=== PATIENT | female | born 1995 | race Caucasian/White ===

== ENCOUNTER 2017-09-19 04:06 | Emergency (ER) | payer SELFPAY ==
[~2017-09-19] VITALS: Ht 180.3 cm; Wt 75.0 kg
[~2017-09-19 04:06] MED LIST: MACR100C2 PO
[2017-09-19 04:08] VITALS: BP 137/71; PULSE 73; RESP 18; TEMP 98.6; O2SAT 100
[2017-09-19 04:50] LABS: BILIRUBIN, URINE NEG (NEG); BLOOD, URINE LARGE (NEG); GLUCOSE,URINE NEG (NEG); KETONE, URINE NEG (NEG); MUCUS URINE FEW /lpf (OCC); NITRITE,URINE NEG (NEG); PH, URINE 5.5 (5.0-8.5); RENAL EPITHELIAL CELLS 1 /hpf; URINE LEUKOCYTE ESTERASE LARGE (NEG); WHITE BLOOD CELL CLUMPS MANY
[2017-09-19 04:51] LABS: URINE COLOR LIGHT-RED (YELLW/STRAW)
[2017-09-19] MEDS ORDERED: NITROFURANTOIN MONOHYD MACROCR 100 MG CAP PO ONE (05:00)
[2017-09-19] MEDS ORDERED: NITR100C4 PO (05:01)
--- NOTE | 2017-09-19 05:01 | PD ---
HPI Chief Complaint: Complaint Time Seen by Provider: 04:18 Travel History International Travel<30 days: No Contact w/Intl Traveler<30days: No Traveled to known affect area: No History of Present Illness HPI Patient is a 22-year-old female presenting to the emergency department for evaluation of 4 hours of dysuria. She reports that her urine has specks of blood in it. Patient states she feels as if she has to urinate every 5 minutes. She denies any abdominal pain, back pain, fever, chills, nausea, vomiting. She denies any vaginal discharge. Symptom onset was sudden, symptom severity is moderate, there are no alleviating factors. PFSH Past Medical History Medical History: Denies Significant Hx Diminished Hearing: No Tetanus Vaccination: Unknown Influenza Vaccination: No ?: Unknown LMP: 08/29/2017 Past Surgical History Surgical History: No Previous Surgery Social History Alcohol Use: No Tobacco Use: No Substance Use: No Allergies-Medications (Allergen,Severity, Reaction): Coded Allergies: No Known Allergies (Unverified , 04/25/16) Reported Meds & Prescriptions Reported Meds & Active Scripts Active Nitrofurantoin Monohydrate Macrocrystals (Nitrofurantoin Monoh/Nitrofur Macro) 100 Mg Cap 100 Mg PO BID 7 Days Macrobid (Nitrofurantoin Monoh/Nitrofur Macro) 100 Mg Cap 100 Mg PO BID 7 Days Review of Systems Except as stated in HPI: all other systems reviewed are Neg Genitourinary: Positive: Frequency, Dysuria, Hematuria Physical Exam Narrative GENERAL: Well-developed, well-nourished, alert female. Presenting in no acute distress. SKIN: Warm and dry. HEAD: Normocephalic. EYES: No scleral icterus. No injection or drainage. NECK: Supple, trachea midline. No JVD or lymphadenopathy. CARDIOVASCULAR: Regular rate and rhythm without murmurs, gallops, or rubs. RESPIRATORY: Breath sounds equal bilaterally. No accessory muscle use. GASTROINTESTINAL: Abdomen soft, non-tender, nondistended. MUSCULOSKELETAL: No cyanosis, or edema. BACK: Nontender without obvious deformity. No CVA tenderness bilaterally. Data Data Last Documented VS Vital Signs Date Time Temp Pulse Resp B/P (MAP) Pulse Ox O2 Delivery O2 Flow Rate FiO2 09/19/17 04:08 98.6 73 18 137/71 (93) 100 Orders Orders Urinalysis - C+S If Indicated (09/19/17 04:14) Ed Urine Pregnancytest Poc (09/19/17 04:14) Urine Culture (09/19/17 04:25) Nitrofurantoin Monohyd Macrocr (Macrobid (09/19/17 05:00) Ed Discharge Order (09/19/17 05:01) Labs Laboratory Tests Test 09/19/17 04:25 Urine Color LIGHT-RED Urine Turbidity CLOUDY Urine pH 5.5 Urine Specific [place] 1.017 Urine Protein 100 mg/dL Urine Glucose (UA) NEG mg/dL Urine Ketones NEG mg/dL Urine Occult Blood LARGE Urine Nitrite NEG Urine Bilirubin NEG Urine Urobilinogen LESS THAN 2.0 MG/DL Urine Leukocyte Esterase LARGE Urine RBC /hpf Urine WBC /hpf Urine WBC Clumps MANY Urine Renal Epithelial Cells 1 /hpf Urine Mucus FEW /lpf Microscopic Urinalysis Comment CULTURE INDICATED MDM Medical Decision Making Medical Screen Exam Complete: Yes Emergency Medical Condition: Yes Interpretation(s) Laboratory Tests Test 09/19/17 04:25 Urine Color LIGHT-RED Urine Turbidity CLOUDY Urine pH 5.5 Urine Specific [place] 1.017 Urine Protein 100 mg/dL Urine Glucose (UA) NEG mg/dL Urine Ketones NEG mg/dL Urine Occult Blood LARGE Urine Nitrite NEG Urine Bilirubin NEG Urine Urobilinogen LESS THAN 2.0 MG/DL Urine Leukocyte Esterase LARGE Urine RBC /hpf Urine WBC /hpf Urine WBC Clumps MANY Urine Renal Epithelial Cells 1 /hpf Urine Mucus FEW /lpf Microscopic Urinalysis Comment CULTURE INDICATED Vital Signs Date Time Temp Pulse Resp B/P (MAP) Pulse Ox O2 Delivery O2 Flow Rate FiO2 09/19/17 04:08 98.6 73 18 137/71 (93) 100 Differential Diagnosis UTI versus pyelonephritis versus bladder spasm versus other Narrative Course Patient is a 22-year-old female presenting for evaluation of urinary symptoms. Patient's vital signs are stable, urine is negative. Urinalysis is consistent with a urinary tract infection. Reflex culture is pending. Patient was given 1 dose of met nitrofurantoin prior to discharge. She is encouraged to increase oral fluid intake, follow-up with her primary doctor. She was encouraged to return to emergency department for any new or worsening symptoms. Patient verbalized understanding of these instructions. Patient stable for discharge. Diagnosis Primary Impression: Urinary tract infection Qualified Codes: N39.0 - Urinary tract infection, site not specified; R31.9 - Hematuria, unspecified Referrals: Primary Care Physician Patient Instructions: General Instructions, Urinary Tract Infection in Women ( [place]) Additional Instructions: Increase fluid intake Complete full course of antibiotics as prescribed Return to emergency department for any new or worsening symptoms Follow-up with your primary doctor Med/Other Pt SpecificInfo: Prescription(s) given Scripts Nitrofurantoin Monohydrate Macrocrystals (Nitrofurantoin Monohydrate Macrocrystals) 100 Mg Cap 100 MG PO BID for Infection for 7 Days, #14 CAP 0 Refills Prov: Paulina Truong 09/19/17 Disposition: 01 DISCHARGE HOME Condition: Stable Paulina Truong Sep 19, 2017 05:01
== END 2017-09-19 05:49 | disposition home or self-care (01) ==
LOC: NEPD 04:06
DX: N39.0 Urinary tract infection, site not specified (principal); R31.9 Hematuria, unspecified
CPT/HCPCS: 81001; 84703; 87077; 87086; 87186; 99283